=== PATIENT | male | born 1980 | race Caucasian/White ===

== ENCOUNTER 2023-02-26 17:18 | Emergency (ER) | payer SELFPAY ==
[2023-02-26 17:21] VITALS: BP 158/106; PULSE 107; RESP 20; TEMP 36.8; O2SAT 98
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
[2023-02-26] MEDS: metoclopramide 5 mg/mL SDV 2 mL 10 MG IVP (18:21)
[2023-02-26 18:22] VITALS: BP 140/73; PULSE 94; O2SAT 97
[2023-02-26] MEDS: ketorolac 30 mg/mL INJ IVP (18:22)
[2023-02-26 18:23] LABS: Basophils % 0.2 %; Hematocrit 37.5 % (42.0-52.0); Hemoglobin 12.9 g/dL (11.7-16.6); Lymphocytes # 0.7 10^3/uL (0.8-4.8); Lymphocytes % 7.1 %; Mean Corpuscular HGB Conc 34.4 g/dL (30.0-36.0); Mean Corpuscular Volume 101.6 fl (80-94); Mean Platelet Volume 10.7 fL (7.4-10.4); Monocytes # 0.8 10^3/uL (0.2-0.9); Monocytes % 8.2 %; Neutrophils % 84.2 %; Nucleated Red Blood Cells % 0 %; Platelet Count 70 10^3/cmm (130-400); Red Blood Count 3.69 10^6/uL (4.1-5.3); Red Cell Distribution Width 12.6 % (12.1-15.1)
[2023-02-26 18:43] LABS: Urine Appearance Clear (CLEAR)
[2023-02-26 18:45] LABS: Amphetamines Screen Urine Negative (Negative); Barbiturates Screen Urine Negative (Negative); Benzodiazepines Screen Urine Negative (Negative); Cocaine Screen Urine Positive (Negative); Opiate Screen Urine Negative (Negative); PCP Screen Urine Negative (Negative); THC Screen Urine Negative (Negative); Urine Color Dark Yellow (Yellow); pH Urine 8 (5-7)
[2023-02-26 18:46] LABS: Bilirubin Urine 2+ (Negative); Blood Urine 2+ (Negative); Glucose Urine UA Norm (Normal); Ketones Urine 2+ (Negative); Leukocyte Esterase Urine Trace (Negative); Nitrate Urine Negative (Negative); Protein Urine 2+ (Negative); Sulfosalicylic Acid Urine Positive (Negative); Urobilinogen Urine 4+ mg/dL (Negative)
[2023-02-26 18:47] LABS: Add Urine Microscopic? YES
[2023-02-26 18:50] LABS: Bacteria Urine TRACE /hpf; Calcium Oxalate Crystals Urine 0-4 /hpf; Mucus Urine 2+ /hpf; RBC Urine 0-4 /hpf (0-2); WBC Urine 0-4 /hpf (0-5)
[2023-02-26 18:51] LABS: Add Urine Culture? No
[2023-02-26 20:30] VITALS: BP 137/81; PULSE 92; RESP 18; O2SAT 96
[2023-02-26 21:17] LABS: Alanine Aminotransferase 111 U/L (0-41); Albumin Level 4.8 g/dL (3.5-5.2); Alkaline Phosphatase 83 U/L (40-130); Anion Gap 20.3 (5-19); Aspartate Amino Transferase 169 U/L (0-40); Blood Urea Nitrogen 10 mg/dL (6-20); Calcium 10.2 mg/dL (8.5-10.5); Carbon Dioxide 24 mmol/L (22-29); Chloride 90 mmol/L (98-107); Globulin 2.9 g/dL (1.3-4.6); Glomerular Filtration Rate 82.3 mL/min (90-130); Glucose 82 mg/dL (65-115); Magnesium 1.9 mg/dL (1.7-2.3); Osmolality Calculated 270 mOsm/kg (285-295); Potassium 3.3 mmol/L (3.5-5.1); Sodium 131 mmol/L (136-145); Total Bilirubin 2.3 mg/dL (0.15-1.2); Total Protein 7.7 g/dL (6.6-8.7)
[2023-02-26 21:19] LABS: Alcohol Level < 10 mg/dL (0-10)
[2023-02-26 21:30] VITALS: BP 132/85; PULSE 95; O2SAT 95
[2023-02-26 21:41] LABS: Prolactin 63.23 ng/mL (4.0-15.2)
[2023-02-26 22:01] LABS: Thyroid Stimulating Hormone 1.95 uIU/mL (0.27-4.20)
[2023-02-26] MEDS: thiamine 100 mg Tablet PO (22:08)
[2023-02-26] MEDS: chlordiazePOXIDE 25 mg Capsule 50 MG PO (22:08)
[2023-02-26 22:12] VITALS: BP 138/90; PULSE 93; RESP 18; O2SAT 94
== END 2023-02-26 22:20 | disposition home or self-care (01) ==
PROVIDERS: Emergency Provider Emergency Medicine
DX: G40.89 Other seizures (principal); F10.139 Alcohol abuse with withdrawal, unspecified; Y90.0 Blood alcohol level of less than 20 mg/100 ml
CPT/HCPCS: 36415; 70450; 80053; 80306; 80307; 81001; 83735; 84146; 84443; 85025; 96374; 96375; 99285; J1885; J2765